=== PATIENT | male | born 1940 | race Caucasian/White ===

== ENCOUNTER 2016-06-05 06:22 | Day surgery (SDC) | payer OTHER, MEDICARE ==
--- NOTE | 2016-06-04 17:35 | GHP ---
[f rep st] HISTORY AND PHYSICAL DATE OF ADMISSION: 06/05/2016 HISTORY OF PRESENT ILLNESS: Patient is a 75-year-old male with a history of inguinal hernia repair w ho was found to have a hernia on a CT scan done to evaluate his back. On physical exam, he was found to have a reducible right inguinal hernia and a left inguinal scar. At this time he is ready to pur elkin a laparoscopic right inguinal hernia repair with mesh, possible bilateral inguinal hernia repair with mesh. Risks and options have been fully discussed including, but not limited to, bleeding, infe ction, nerve injury, bowel injury, bladder injury, spermatic cord injury, conversion to open procedur e, recurrence and other problems, and he requests to proceed. PAST MEDICAL HISTORY: Includes chronic back pain, hypertension. PAST SURGICAL HISTORY: Back surgery, and hernia surgeries. MEDICATIONS: Lisinopril, Lipitor, hydrochlorothiazide, Prilosec. ALLERGIES: No known drug allergies. BODY AFTER ALLERGIES: SOCIAL HISTORY: Patient lives in [facility]. FAMILY HISTORY: Noncontributory. REVIEW OF SYSTEMS: No positives. PHYSICAL EXAMINATION: GENERAL: Reveals a 75-year-old male, alert and oriented x3, in no acute distr ess, using a cane while walking. HEENT: Normocephalic, atraumatic. CHEST: Clear to auscultation b ilaterally. CARDIAC: Regular rate and rhythm. ABDOMEN: Reducible right inguinal mass. Left ingui nal scar. Large scrotum without hydrocele. EXTREMITIES: No edema. IMPRESSION: This is a 75-year-old male with a history of what we think is a left inguinal hernia rep air now with a right inguinal hernia. PLAN: Proceed with a laparoscopic right inguinal hernia repair with mesh, possible bilateral inguina l hernia repair with mesh. Again, risks and options have been discussed and he requests to proceed. /[id number]/MODL
[2016-06-05] MEDS ORDERED: LIDOCAINE 1% 5 ML SDV ONE ×2 (07:01→07:06)
[2016-06-05] MEDS ORDERED: fentaNYL 100 MCG/2 ML INJ ONE ×3 (07:16→09:08)
[2016-06-05] MEDS ORDERED: LIDOCAINE 2% 5 ML SDV ONE (07:17)
[2016-06-05] MEDS ORDERED: ROCURONIUM 50 MG/5 ML VIAL ONE ×2 (07:17→08:21)
[2016-06-05] MEDS ORDERED: DEXAMETHASONE 4 MG/ML VIAL ONE (07:17)
[2016-06-05] MEDS ORDERED: PROPOFOL 200 MG/20 ML VIAL ONE (07:17)
[2016-06-05] MEDS ORDERED: ONDANSETRON 4 MG/2 ML VIAL ONE (07:17)
[2016-06-05] MEDS ORDERED: LR 1,000 ML IV ONE (07:39)
[2016-06-05] MEDS ORDERED: LIDOCAINE 1% 5 ML SDV ID PRN (07:39)
[2016-06-05] MEDS ORDERED: MIDAZOLAM 2 MG/2 ML VIAL ONE (07:43)
[2016-06-05] MEDS ORDERED: CEFAZOLIN 2 GM/DEXTROSE/100 ML BAG IV ONE (07:45)
[2016-06-05] MEDS ORDERED: BUPIVACAINE 0.5% 30 ML SDV ONE (07:51)
[2016-06-05 07:56] LABS: ANION GAP 10 mEq/L (8-16); CALCIUM 9.4 mg/dL (8.5-10.4); CARBON DIOXIDE 27 mEq/l (22-31); CHLORIDE 109 mEq/L (97-110); CREATININE 1.1 mg/dL (0.7-1.3); GLOMERULAR FILTRATION RATE > 60; GLUCOSE 98 mg/dL (70-100); POTASSIUM 3.9 mEq/L (3.5-5.2); SODIUM 146 mEq/L (134-144)
[2016-06-05] MEDS ORDERED: ceFAZolin 2 GM in D5W 100 ML IV ONE (08:00)
--- NOTE | 2016-06-05 14:59 | GOP ---
[f rep st] OPERATIVE REPORT DATE OF OPERATION: 06/05/2016 SURGEON: Dioni Zamora MD CONTROL MANAGER: KODY Rivera ANESTHESIOLOGIST: Zach Ring MD. PREOPERATIVE DIAGNOSIS: Chronic incarcerated right inguinal hernia. POSTOPERATIVE DIAGNOSIS: Chronic incarcerated right inguinal hernia. PROCEDURE PERFORMED: Laparoscopic repair of incarcerated right inguinal hernia and left exploration . FINDINGS: The patient was found to have a good solid floor on the left side with no evidence of any recurrent hernia. On the right, he had a very large incarcerated indirect hernia with a large amoun t of omentum trapped in the hernia defect, going down into the scrotum. DESCRIPTION OF PROCEDURE: The patient was taken to the operating room, where he received satisfacto ry general endotracheal anesthesia by Dr. Ring. He was placed in the supine position, prepped, and draped in the usual sterile fashion. Infraumbilical incision was made. Dissection was carried down t o the rectus sheath, which was opened. A subfascial tunnel was developed in the preperitoneal space. This was dissected free with a balloon dissector, which was replaced with a CO2 insufflation trocar . 2 other trocars were placed in the midline under direct vision. Víctor ligament was exposed bilate rally. The cords were mobilized bilaterally. As noted above, on the left side, there was no evidence of a recurrent hernia on the right. A large indirect sac was dissected free. Its contents were slow ly difficultly reduced out of the scrotum, comprised of primarily fatty tissue. The cord structures were skeletonized. A Covidien polyester mesh patch was inserted with a split patch to pass the limb around the cord structures, and then anchored in place with AbsorbaTack, securing it to Víctor ligam ent, to the lacunar ligament, to the anterior abdominal wall and the lateral abdominal wall outside the internal ring. Hemostasis was assured. The trocars were removed under direct vision. Pneumoperit oneum was released. Trocar sites were closed with 0 Vicryl for the fascia, 4-0 Vicryl subcuticular s titch for the skin, and all layers were infiltrated with 0.5% Marcaine. There were no complications. He tolerated the procedure well, and was taken to the recovery room in good condition. /[id number]/MODL
== END 2016-06-05 12:04 | disposition home health service (06) ==
LOC: FSGY 06:22
PROVIDERS: ATTEND Surgery
PROC: 0YU54JZ Supplement Right Inguinal Region with Synthetic Substitute, Percutaneous Endoscopic Approach (ICD-10-PCS; principal; 2016-06-05 08:00)
DX: K40.30 Unilateral inguinal hernia, with obstruction, without gangrene, not specified as recurrent (principal); R10.31 Right lower quadrant pain; G89.29 Other chronic pain; I10 Essential (primary) hypertension; K21.9 Gastro-esophageal reflux disease without esophagitis
CPT/HCPCS: 49650; C1727; C1781; J0690; J1100; J2250; J2405; J2704; J3010